=== PATIENT | male | born 1965 | race Caucasian/White ===

== ENCOUNTER → 2019-06-08 | Outpatient (CLI) | payer BC ==
--- NOTE | 2019-06-08 10:50 | RAD ---
EXAM: MRI RIGHT KNEE DATE: 06/08/2019 9:00 AM CLINICAL INDICATION: Medial right knee pain COMPARISON: None. TECHNIQUE: Multiplanar, multisequence MRI of the right knee was performed without contrast. FINDINGS: No significant knee joint effusion. No Julian's cyst. The ACL and PCL are intact. MCL, fibular collateral ligament, biceps femoris and IT band are intact. Popliteus is normal in signal and morphology, intact. Extensor mechanism is intact. Neutral patellar tracking. Medial meniscus: Mild irregularity at the inferior articular surface of the medial meniscus with equivocal oblique tear extending into the posterior horn. Evaluation is limited given motion artifact. Lateral meniscus: Intact. Moderate prepatellar soft tissue edema. There is a small nondisplaced fracture of the anteromedial aspect of the medial tibial plateau with moderate associated edema. No significant articular surface irregularity overlying chondral defect. IMPRESSION: 1. Nondisplaced fracture anteromedial aspect medial tibial plateau with moderate associated marrow edema without articular surface depression or definite articular cartilage abnormality. 2. Motion artifact limits evaluation for meniscal tear however there is an equivocal oblique tear within the posterior horn medial meniscus. 3. Moderate prepatellar edema. Electronically signed by: Adam Yeboah MD (06/08/2019 10:47 AM) [id number]
== END | disposition home or self-care (01) ==
LOC: MRI 08:42
PROVIDERS: ATTEND Orthopaedic Surgery
DX: S82.134A Nondisplaced fracture of medial condyle of right tibia, initial encounter for closed fracture (principal); S83.241A Other tear of medial meniscus, current injury, right knee, initial encounter; M79.89 Other specified soft tissue disorders; X58.XXXA Exposure to other specified factors, initial encounter; Y93.89 Activity, other specified; Y92.89 Other specified places as the place of occurrence of the external cause
CPT/HCPCS: 73721

== ENCOUNTER → 2019-12-09 | Emergency (ER) | payer BC ==
[~2019-12-09] VITALS: Ht 172.7 cm; Wt 81.8 kg
[~2019-12-09] MED LIST: ALBU2.5V8 IH; ALBU2.5V8 INH; HYDROCODONE-IB1 EAC3 PO; METH4TAB2 PO; MOME17SP NS; PRED50TA PO
[2019-12-09 15:16] VITALS: BP 155/83
--- NOTE | 2019-12-09 15:37 | RAD ---
CHEST AP ONLY Clinical History: Chronic dyspnea Technique: AP view of the chest was obtained at 12/09/2019 3:14 PM. Comparison: January 22, 2018. Findings: The cardiomediastinal silhouette is normal. The pulmonary vasculature is normal. Linear and reticular opacities in the lower lungs was seen previously. There is minimal density along the pleural margin laterally on the right. Impression: 1. Chronic pulmonary fibrosis appears stable. 2. Pleural density on the right is likely a tiny effusion. Electronically signed by: Von Zuleta III, MD (12/09/2019 3:34 PM) [id number]
--- NOTE | 2019-12-09 16:06 | PHYS DOC ---
Past Medical History Past Medical History: No Pertinent History Past Surgical History: No Surgical History Smoking Status: Current Every Day Smoker Alcohol Use: Heavy General Adult EDM: Chief Complaint: SHORTNESS OF BREATH HPI: HPI: Patient is a 54 year old male without history of medical problem who presents with complaint of shortness of breath. Patient states he smokes 2.5 to 3 pack of cigarettes per day for the last 43 years and complaint of constant shortness of breath and chronic cough for years that getting worse for the last 6 months. 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 Patient denies chest pain, fever and chills, focal neuro deficit, myalgia, headache, sick contact. Review of Systems: Review of Systems: Constitutional: Denies fever or chills. [] Eyes: Denies change in visual acuity. [] HENT: Denies nasal congestion or sore throat. [] Respiratory: Reports cough and shortness of breath Cardiovascular: Denies chest pain or edema. [] GI: Denies abdominal pain, nausea, vomiting, bloody stools or diarrhea. [] : Denies dysuria. [] Musculoskeletal: Denies back pain or joint pain. [] Integument: Denies rash. [] Neurologic: Denies headache, focal weakness or sensory changes. [] Endocrine: Denies polyuria or polydipsia. [] Lymphatic: Denies swollen glands. [] Psychiatric: Denies depression or anxiety. [] Heart Score: Risk Factors: Risk Factors: DM, Current or recent (<one month) smoker, HTN, HLP, family history of CAD, obesity. Risk Scores: Score 0 - 3: 2.5% MACE over next 6 weeks - Discharge Home Score 4 - 6: 20.3% MACE over next 6 weeks - Admit for Clinical Observation Score 7 - 10: 72.7% MACE over next 6 weeks - Early Invasive Strategies Allergies: Allergies: Allergies Coded Allergies Type Severity Reaction Last Updated Verified Penicillins Allergy Intermediate 12/09/19 Yes Physical Exam: PE: Constitutional: Well developed, well nourished, no acute distress, non-toxic appearance. [] HENT: Normocephalic, atraumatic, bilateral external ears normal, oropharynx moist, no oral exudates, nose normal. [] Eyes: PERRLA, EOMI, conjunctiva normal, no discharge. [] Neck: Normal range of motion, no tenderness, supple, no stridor. [] Cardiovascular:Heart rate regular rhythm, no murmur [] Lungs & Thorax: Bilateral breath sounds clear to auscultation [] Abdomen: Bowel sounds normal, soft, no tenderness, no masses, no pulsatile masses. [] Skin: Warm, dry, no erythema, no rash. [] Back: No tenderness, no CVA tenderness. [] Extremities: No tenderness, no cyanosis, no clubbing, ROM intact, no edema. [] Neurologic: Alert and oriented X 3, normal motor function, normal sensory function, no focal deficits noted. [] Psychologic: Affect normal, judgement normal, mood normal. [] Current Patient Data: Vital Signs: Vital Signs Date Time Temp Pulse Resp B/P (MAP) Pulse Ox O2 Delivery O2 Flow Rate FiO2 12/09/19 15:16 97.7 75 20 155/83 (107) 98 Room Air 97.7 EKG: EKG: [] Radiology/Procedures: Radiology/Procedures: [facility] [address] [place] [address] IMAGING REPORT Signed PATIENT: SALLY SWEETCCOUNT: [id number] : 1965 LOCATION: ER AGE: 54 SEX: M EXAM STATUS: PRE ER ORD. PHYSICIAN: HARJINDER SMITH MD REASON: Chronic shortness of breath PROCEDURE: CHEST AP ONLY CHEST AP ONLY Clinical History: Chronic dyspnea Technique: AP view of the chest was obtained at 12/09/2019 3:14 PM. Comparison: January 22, 2018. Findings: The cardiomediastinal silhouette is normal. The pulmonary vasculature is normal. Linear and reticular opacities in the lower lungs was seen previously. There is minimal density along the pleural margin laterally on the right. Impression: 1. Chronic pulmonary fibrosis appears stable. 2. Pleural density on the right is likely a tiny effusion. Electronically signed by: Ortega Lew III, MD (12/09/2019 3:34 PM) [id number] DICTATED and SIGNED BY: ORTEGA LEW III, MD DATE: 12/09/19 1534 Course & Med Decision Making: Course & Med Decision Making Pertinent Imaging studies reviewed. (See chart for details) Evaluation of patient no showed 54-year-old heavy smoker male patient with complaining of chronic shortness of breath and cough. Patient had unremarkable physical exam with a stable O2 sat without fever. Chest x-ray showed chronic scarring of lung with small right pleural effusion. Patient was advised to quit smoking and follow-up with the primary care physician. Prescription for Medrol Dosepak and albuterol inhaler was given. I've spoken with the patient and/or caregivers. I've explained the patient's condition, diagnosis and treatment plan based on information available to me at this time. I've answered the patient's and/or caregivers questions and addressed any concerns. The patient and/or caregivers have a good understanding the patient's diagnosis, condition and treatment plan as can be expected at this point. Vital signs have been stabilized. The patient's condition is stable for discharge from the emergency department. The patient will pursue further outpatient evaluation with her primary care leti gutierrez or other designated consulting physician as outlined in the discharge instructions. Patient and/or caregivers are agreeable to this plan of care and follow-up instructions have been explained in detail. The patient and/or caregivers have received these instructions in written format and expressed understanding of these discharge instructions. The patient and her caregivers are aware that if any significant change in condition or worsening of symptoms should prompt him to immediately return to this of the closest emergency department. If an emergent department is not readily available I would encourage him to call 911. Michelle Disclaimer: Michelle Disclaimer: This electronic medical record was generated, in whole or in part, using a voice recognition dictation system. Departure Departure Impression: Primary Impression: COPD (chronic obstructive pulmonary disease) Qualified Codes: J44.9 - Chronic obstructive pulmonary disease, unspecified Additional Impressions: Pleural effusion Tobacco abuse Tobacco abuse counseling Disposition: HOME, SELF-CARE (At 1604) Condition: STABLE Referrals: NON,STAFF (PCP) Patient Instructions: Chronic Obstructive Pulmonary Disease, Cigar Smoking and Cancer, Smoking Cessation, Tips For Success Additional Instructions: Quit smoking Follow-up with your primary care physician in 3-5 days Return to ER if not getting better Thank you for visiting [facility]. We appreciate you trusting us with your care. If any additional problems come up don't hesitate to return to visit us. Please follow up with your primary care provider so they can plan additional care if needed and know about the problem that you had. If symptoms worsen come back to the Emergency Department. Any concerning symptoms that start such as chest pain, shortness of air, weakness or numbness on one side of the body, running high fevers or any other concerning symptoms return to the ER. Scripts Albuterol Sulfate (PROAIR HFA INHALER) 8.5 Gm Hfa.aer.ad 2 PUFF IH PRN Q4-6HRS PRN for wheezing for 21 Days, #1 INHALER 0 Refills Prov: HARJINDER SMITH MD 12/09/19 Methylprednisolone (MEDROL) 4 Mg Tab.ds.pk 1 PKG PO UD for inflammation, #1 PKG Prov: HARJINDER SMITH MD 12/09/19 HARJINDER SMITH MD Dec 09, 2019 16:06
== END | disposition home or self-care (01) ==
LOC: ER 14:57
DX: J44.9 Chronic obstructive pulmonary disease, unspecified (principal); J90 Pleural effusion, not elsewhere classified; Z71.6 Tobacco abuse counseling; F17.210 Nicotine dependence, cigarettes, uncomplicated; F10.20 Alcohol dependence, uncomplicated; Y90.9 Presence of alcohol in blood, level not specified; Z88.0 Allergy status to penicillin
CPT/HCPCS: 71045; 99283

== ENCOUNTER 2021-05-28 16:33 | Emergency (ER) | payer BC ==
[2019-12-09 15:16] VITALS: BP 155/83
== END 2021-05-28 17:19 | disposition left against medical advice (07) ==
LOC: ER 16:33
DX: M54.2 Cervicalgia (principal); Z53.21 Procedure and treatment not carried out due to patient leaving prior to being seen by health care provider

== ENCOUNTER 2021-05-30 14:22 | Emergency (ER) | payer OTHER, BC ==
[~2021-05-30] VITALS: Ht 167.6 cm; Wt 81.8 kg
[2021-05-30 14:47] VITALS: BP 161/93
[2021-05-30] MEDS ORDERED: CYCL5TAB PO (14:52)
[2021-05-30] MEDS ORDERED: TRAM-48 PO (14:52)
[2021-05-30] MEDS ORDERED: METH4TAB2 PO (14:52)
--- NOTE | 2021-05-30 14:54 | ED.ADGEN ---
Past Medical History Past Medical History: No Pertinent History Past Surgical History: No Surgical History Smoking Status: Current Every Day Smoker Alcohol Use: Heavy General Adult EDM: Chief Complaint: NECK PAIN HPI: HPI: Patient is a 55-year-old male who arrives ambulatory to the emergency department complaining of right-sided neck pain. Patient reportedly hurt his neck while working last week and has had continued pain at the right lateral side of his neck and states it moves into his right shoulder right upper extremity. Patient states he was evaluated by his chiropractor who took x-rays and had concerns about the patient receiving of blood to his brain related to this incident. Despite this, the patient is continue to work. Additionally is not had any shortness of air, dizziness or syncopal episodes. He reports only pain. He is awake, alert and uncomfortable appearing. Review of Systems: Review of Systems: Constitutional: Denies fever or chills. [] Eyes: Denies change in visual acuity. [] HENT: Denies nasal congestion or sore throat. [] Respiratory: Denies cough or shortness of breath. [] Cardiovascular: Denies chest pain or edema. [] GI: Denies abdominal pain, nausea, vomiting, bloody stools or diarrhea. [] : Denies dysuria. [] Musculoskeletal: Reports neck pain and right upper extremity pain. Denies back pain. [] Integument: Denies rash. [] Neurologic: Denies headache, focal weakness or sensory changes. [] Endocrine: Denies polyuria or polydipsia. [] Lymphatic: Denies swollen glands. [] Psychiatric: Denies depression or anxiety. [] Allergies: Allergies: Allergies Coded Allergies Type Severity Reaction Last Updated Verified Penicillins Allergy Intermediate 12/09/19 Yes Physical Exam: PE: Constitutional: Well developed, well nourished, no acute distress, non-toxic appearance. [] HENT: Normocephalic, atraumatic, bilateral external ears normal, oropharynx moist, no oral exudates, nose normal. [] Eyes: PERRLA, EOMI, conjunctiva normal, no discharge. [] Neck: Paraspinal tenderness to palpation of the musculature on the right in the cervical spine. Range of motion is normal however it is painful. [] Cardiovascular:Heart rate regular rhythm, no murmur [] Lungs & Thorax: Bilateral breath sounds clear to auscultation [] Abdomen: Bowel sounds normal, soft, no tenderness, no masses, no pulsatile masses. [] Skin: Warm, dry, no erythema, no rash. [] Back: No tenderness, no CVA tenderness. [] Extremities: No tenderness, no cyanosis, no clubbing, ROM intact, no edema. [] Neurologic: Alert and oriented X 3, normal motor function, normal sensory function, no focal deficits noted. [] Psychologic: Affect normal, judgement normal, mood normal. [] Current Patient Data: Vital Signs: Vital Signs Date Time Temp Pulse Resp B/P (MAP) Pulse Ox O2 Delivery O2 Flow Rate FiO2 05/30/21 14:47 98.0 84 20 161/93 (115) 96 Room Air 98.0 EKG: EKG: [] Heart Score: C/O Chest Pain: No Risk Factors: Risk Factors: DM, Current or recent (<one month) smoker, HTN, HLP, family history of CAD, obesity. Risk Scores: Score 0 - 3: 2.5% MACE over next 6 weeks - Discharge Home Score 4 - 6: 20.3% MACE over next 6 weeks - Admit for Clinical Observation Score 7 - 10: 72.7% MACE over next 6 weeks - Early Invasive Strategies Radiology/Procedures: Radiology/Procedures: [] Course & Med Decision Making: Course & Med Decision Making Pertinent Labs and Imaging studies reviewed. (See chart for details) [] Dragon Disclaimer: Michelle Disclaimer: This electronic medical record was generated, in whole or in part, using a voice recognition dictation system. Departure Departure Impression: Primary Impression: Cervical radiculopathy Referrals: UNKNOWN PCP NAME (PCP) Patient Instructions: Cervical Radiculopathy Scripts Cyclobenzaprine Hcl (CYCLOBENZAPRINE HCL) 5 Mg Tablet 1 TAB PO TID for 7 Days, #21 TAB Prov: CARMELA BURT DO 05/30/21 Tramadol Hcl (ULTRAM) 50 Mg Tablet 50 MG PO Q6HRS PRN for PAIN, #20 TAB 0 Refills Prov: CARMELA BURT DO 05/30/21 Methylprednisolone (MEDROL) 4 Mg Tab.ds.pk 1 PKG PO UD for inflammation, #1 PKG Prov: CARMELA BURT DO 05/30/21 CARMELA BURT DO May 30, 2021 14:54
== END 2021-05-30 15:34 | disposition home or self-care (01) ==
LOC: ER 14:22
DX: M54.12 Radiculopathy, cervical region (principal); F17.200 Nicotine dependence, unspecified, uncomplicated; F10.20 Alcohol dependence, uncomplicated; Z88.0 Allergy status to penicillin; Y90.9 Presence of alcohol in blood, level not specified
CPT/HCPCS: 99283